=== PATIENT | male | born 1955 | race Two or more races ===

== ENCOUNTER → 2016-07-31 | Outpatient (CLI) | payer OTHER ==
[~2016-07-31] MED LIST: ASPI-664 PO; FAMO20TA18 PO; HYDR12.58 PO; LOSA25TA5 PO; PANT20TA3 PO; PRAV10TA43 PO; TAMS-14 PO
--- NOTE | 2016-07-31 14:12 | RADRPT ---
PROCEDURE: XR left knee. CLINICAL INDICATION: Knee pain TECHNIQUE: AP weightbearing, PA weightbearing, lateral weightbearing and sunrise views are availab le for review. COMPARISON: None available FINDINGS: There is moderate osteoarthrosis involving the medial tibial femoral compartment, lateral tibial fem oral compartment and patellofemoral compartment. This is associated with joint space narrowing, subc hondral sclerosis and osteophytosis. There is a calcified loose body in the anterior lateral joint. There is otherwise normal mineralization, architecture and alignment. No fractures are identified. No osseous lesions are identified. The soft tissues are unremarkable. IMPRESSION: Moderate osteoarthrosis involving the medial tibial femoral compartment, lateral tibial femoral comp artment and patellofemoral compartment. Calcified loose body in the anterior lateral joint RPTAT: [facility] .Sammy Davis MD, Date Time Electronically viewed and signed by .Sammy Davis MD, on 07/31/2016 14:12 .B/
== END | disposition home or self-care (01) ==
LOC: HKI 13:58
PROVIDERS: ATTEND Orthopaedic Surgery
DX: M25.562 Pain in left knee (principal); M17.12 Unilateral primary osteoarthritis, left knee
CPT/HCPCS: 73564; Z7500; G0463

== ENCOUNTER → 2016-09-13 | Outpatient (CLI) | payer OTHER ==
--- NOTE | 2016-09-13 10:51 | PN ---
Date/Time of Note Date/Time of Note DATE: 09/13/16 TIME: 10:46 Assessment/Plan VTE Prophylaxis VTE Prophylaxis Intervention: ambulation Assessment/Plan Assessment/Plan ASSESSMENT: Left knee osteoarthritis PLAN: The patient underwent a Monovisc injection to his left knee today. He tolerated the procedure well. He was advised to modify his activity, take over- the-counter anti-inflammatories, and apply ice as needed. We will see him back on an as needed basis. If he would like to repeat the injection, is to call the office prior to the six-month harjeet at which point we will see him back in repeat injection if it is indicated. PROCEDURE NOTE: The procedure was fully explained to the patient, and informed consent was obtained prior to the start of the procedure. The area is prepped with Betadine and anesthetized using ethyl chloride. 4 cc of Monovisc was injected into the superolateral aspect of the left knee intra-articularly. The patient tolerated the procedure well. A sterile dressing was then applied. All questions and concerns were addressed at the time of the procedure. Subjective 24 Hr Interval Summary Free Text/Dictation The patient presents today for a Monovisc injection to his left knee. He continues to have left knee discomfort with ambulation, but it is improving overall. He denies any fevers or chills. He denies any recurrent fall or injury. He is here today for a Visco supplementation injection to his left knee. Exam/Review of Systems Exam On exam today, he is alert and oriented 4, and in no acute distress. He has a trace effusion. Range of motion 0-115. He has 3+ patellofemoral crepitus. There is diffuse medial and lateral joint line tenderness. Varus and valgus forces are stable. There is no erythema or warmth noted. Homans sign is negative. Compartments are soft. He is neurovascularly intact distally. ELENI LOCKWOOD PA-C Sep 13, 2016 10:51
== END | disposition home or self-care (01) ==
LOC: HKI 08:55
PROVIDERS: ATTEND Orthopaedic Surgery
DX: M17.12 Unilateral primary osteoarthritis, left knee (principal)
CPT/HCPCS: 20610; J7327